=== PATIENT | male | born 1965 | race Caucasian/White ===

== ENCOUNTER → 2017-11-10 15:30 | Outpatient (CLI) | payer SELFPAY ==
--- NOTE | 2017-11-10 15:30 | MRI_ITS ---
STUDY: MRI LUMBAR SPINE WITHOUT CONTRAST REASON FOR EXAM: Male, 52 years old. BACK PAIN, nki, chronic pain, no radiculopathy. TECHNIQUE: Standardized fat and water weighted pulse sequences were obtained in the sagittal and axial planes. COMPARISON: December 23, 2016 FINDINGS: T12-L1: There is mild disc space narrowing and endplate spondylosis. There is minimal disc bulge without significant central canal or foraminal stenosis. Normal lumbar lordosis. There is no substantial scoliosis. Normal conus medullaris that terminates at the L1 L1-2: There is mild disc space narrowing and endplate spondylosis. There is stable minimal disc bulge and annular fissure without significant central canal or foraminal stenosis. L2-3: There is mild disc space narrowing and endplate spondylosis. There is stable minimal disc bulge and annular fissure without significant central canal or foraminal stenosis. L3-4: There is a mild disc space narrowing and endplate spondylosis. There is a mild disc bulge with small central protrusion with mild central canal stenosis. There is minimal bilateral foraminal stenosis. Findings are stable since prior examination L4-5: There is a mild disc space narrowing and endplate spondylosis. There is a mild disc bulge with small central protrusion with mild central canal stenosis. There is minimal bilateral foraminal stenosis. There is mild facet arthropathy Findings are stable since prior examination L5-S1: There is a mild disc space narrowing and endplate spondylosis. There is a mild disc bulge with small central protrusion with minimal central canal stenosis. There is minimal bilateral foraminal stenosis. There is mild facet arthropathy. Findings are stable since prior examination Normal visualized sacral ala. Normal visualized paraspinous soft tissue structures. MRI/Spine Lumbar (Routine) IMPRESSION: Stable examination. Mild multilevel degenerative changes. Electronically Signed: Catherine Alegria MD at 8:55 EDT Tel , Service support ,
--- NOTE | 2017-11-10 15:30 | DT_ITS ---
This patient was seen during an EMR downtime November 08, 2017 - November 15, 2017. This patient may have a combination of paper and electronic documentation or all paper documentation. All documentation is viewable within the e-chart portion of [facility] for each patient visit.
== END ==
PROVIDERS: Family Provider Family Medicine; PCP Family Medicine
DX: M99.03 Segmental and somatic dysfunction of lumbar region (principal); M99.04 Segmental and somatic dysfunction of sacral region
CPT/HCPCS: 72148